=== PATIENT | female | born 1980 | race Caucasian/White ===

== ENCOUNTER 2020-01-16 09:41 | Emergency (ER) | payer SELFPAY ==
[~2020-01-16] VITALS: Ht 165 cm; Wt 110.0 kg
--- NOTE | 2020-01-16 09:56 | ED Lower Extremity ---
General Stated Complaint: RT ANKLE INJ Source: patient Exam Limitations: no limitations History of Present Illness Date Seen by Provider: Jan 16, 2020 Time Seen by Provider: 09:42 Initial Comments The patient is a pleasant 39-year-old female who presents for evaluation of an injury to the right ankle. She states that yesterday evening she was going on her stairs and tripped and twisted the ankle and felt a pop. She used some crutches or at home and were originally given to her father. She denies any other injuries from the fall and specifically denies hitting her head, having neck pain, or losing consciousness. She denies previous significant injury to the ankle. She is unable to bear full weight due to the pain. There is some swelling and a small amount of ecchymosis near the right lateral malleolus. She is alert and oriented 4, calm, and appears to be in no distress at this time. Onset: yesterday Severity: moderate Pain/Injury Location: right ankle Method of Injury: fell Modifying Factors: Improves With Movement (makes the pain worse), Improves With Rest (makes the pain better) Allergies and Home Medications Allergies Coded Allergies: No Known Drug Allergies (Unverified , 01/16/20) Home Medications Hydrocodone/Acetaminophen 1 Each Tablet, 1 EACH PO Q4H Prescribed by: JAZZMINE PEREZ on 01/16/20 1024 Patient Home Medication List Home Medication List Reviewed: Yes Review of Systems Constitutional: no symptoms reported EENTM: no symptoms reported Respiratory: no symptoms reported Cardiovascular: no symptoms reported Gastrointestinal: no symptoms reported Genitourinary: no symptoms reported Musculoskeletal: other (right lateral ankle pain and swelling) Skin: no symptoms reported Psychiatric/Neurological: No Symptoms Reported All Other Systems Reviewed Negative Unless Noted: Yes Past Hfoyzlk-Gfdibm-Hyidyr Hx Past Med/Social Hx: Reviewed Nursing Past Med/Soc Hx Patient Social History Recent Foreign Travel: No Contact w/Someone Who Travel: No Physical Exam Vital Signs Vital Signs - First Documented 01/16/20 09:58 Temp 37.0 Pulse 89 Resp 18 B/P (MAP) 124/76 (92) Pulse Ox 99 O2 Delivery Room Air Capillary Refill : Height, Weight, BMI Height: '" Weight: lbs. oz. kg; BMI Method: General Appearance: WD/WN, no apparent distress HEENT: PERRL/EOMI, normal ENT inspection Neck: non-tender, full range of motion Cardiovascular: regular rate, rhythm, no edema, no JVD Respiratory: lungs clear, normal breath sounds, no respiratory distress Hips: bilateral hip non-tender, bilateral hip normal inspection, bilateral hip normal range of motion, bilateral hip no evidence of injury Legs: bilateral leg non-tender, bilateral leg normal inspection, bilateral leg normal range of motion, bilateral leg no evidence of injury Knees: bilateral knee non-tender, bilateral knee normal inspection, bilateral knee normal range of motion, bilateral knee no evidence of injury Ankles: left ankle non-tender, left ankle normal inspection, left ankle normal range of motion, left ankle no evidence of injury; right ankle bone tenderness Feet: bilateral foot non-tender, bilateral foot normal inspection, bilateral foot normal range of motion, bilateral foot no evidence of injury Neurologic/Psychiatric: no motor/sensory deficits, alert, normal mood/affect, oriented x 3 Skin: normal color, warm/dry Progress/Results/Core Measures Results/Orders My Orders Orders - AJZZMINE PEREZ DO Ankle 3 View Right (01/16/20 09:45) Ice: Apply To Affected Area (01/16/20 09:46) Ortho Glass (01/16/20 10:15) Hydrocodone/Apap 5/325 Tablet (Lortab 5 (01/16/20 10:15) Crutches (01/16/20 10:24) Vital Signs/I&O 01/16/20 09:58 Temp 37.0 Pulse 89 Resp 18 B/P (MAP) 124/76 (92) Pulse Ox 99 O2 Delivery Room Air Progress Progress Note : Progress Note @1025 - Patient updated on x-ray findings suggesting nondisplaced right distal fibula fracture. Orthoglass splint applied by LAKIA Nice. Minimal swelling, no sign of compartment syndrome @1030 - Pt has been given orthopedic follow-up. Advise the patient to return for new or worsening symptoms. Advised patient to take Tylenol or ibuprofen at home for pain relief and to take the prescribed medication as needed for breakthrough pain. She has been given new crutches. Diagnostic Imaging Diagonstic Imaging: Xray Comments NAME: HUMBLE PHILLIPS [facility] REC#: [id number] PT STATUS: REG ER : 1980 PHYSICIAN: JAZZMINE PEREZ DO ADMIT DATE: 01/16/20/ER FS Draft Date of Exam:01/16/20 ANKLE 3 VIEW RIGHT EXAMINATION: Right ankle at 954h. INDICATION: Ankle pain 3 views were obtained. There are no prior studies available for comparison On the oblique view there is a faint linear lucency extending longitudinally through the distal fibula. This is difficult to identify on the other 2 projections but I am suspicious that there is a nondisplaced fracture of the distal fibula. No other fracture or acute bony abnormality is appreciated. The ankle mortise is not widened and the talar dome is smooth. There is soft tissue edema over the lateral aspect of the ankle joint. IMPRESSION: 1. The findings are suspicious for a nondisplaced fracture of the distal fibula. There is no acute bony abnormality noted otherwise. 2. If further imaging is desired, either CT or MRI would be recommended. Dictated on workstation # [id number] Dict: 01/16/20 1003 Trans: 01/16/20 1008 ELLEN [id number] Interpreted by: SAMMIE ELLISON MD Electronically signed by: Departure Impression Primary Impression: Fracture of distal end of right fibula Disposition: HOME, SELF-CARE Condition: Stable Departure-Patient Inst. Decision time for Depature: 10:02 Referrals: LUKE CHAPPELL MD Patient Instructions: Ankle Fracture (DC) Add. Discharge Instructions: Take the prescribed medicine as directed, as needed. Follow-up with orthopedics in the next 2-3 days. Return to the emergency Department immediately for new or worsening symptoms. Scripts Hydrocodone/Acetaminophen (Hydrocodone-Acetamin 5-325 mg) 1 Each Tablet 1 EACH PO Q4H for Pain for 5 Days, #15 TAB Prov: JAZZMINE PEREZ DO 01/16/20 JAZZMINE PEREZ DO Jan 16, 2020 09:56
--- OUTSIDE RECORDS SUMMARY | 2020-01-16 09:56 | XMS REPORT | Continuity of Care Document ---
Author Organization Unknown Address Unknown Phone Unavailable Allergies There is no data. Medications There is no data. Problems There is no data. Procedures There is no data. Results There is no data. Encounters ACCT No. Visit Date/Time Discharge Status Pt. Type Provider Facility Loc./Unit Complaint [id number] 06/07/2019 16:00:00 06/07/2019 23:59: 59 CLS Outpatient MIRANDA CARLTON L[facility]
--- NOTE | 2020-01-16 10:09 | Diagnostic Imaging Report ---
EXAMINATION: Right ankle at 954h. INDICATION: Ankle pain 3 views were obtained. There are no prior studies available for comparison On the oblique view there is a faint linear lucency extending longitudinally through the distal fibula. This is difficult to identify on the other 2 projections but I am suspicious that there is a nondisplaced fracture of the distal fibula. No other fracture or acute bony abnormality is appreciated. The ankle mortise is not widened and the talar dome is smooth. There is soft tissue edema over the lateral aspect of the ankle joint. IMPRESSION: 1. The findings are suspicious for a nondisplaced fracture of the distal fibula. There is no acute bony abnormality noted otherwise. 2. If further imaging is desired, then either CT or MRI would be recommended. Dictated by: Dictated on workstation # [id number]
[2020-01-16] MEDS ORDERED: HYDROcodone/APAP 5 MG/325 MG (LORTAB) TAB PO ONE (10:15)
[2020-01-16] MEDS ORDERED: IBUPROFEN 600 MG (MOTRIN) TAB PO ONE (10:15)
[2020-01-16] MEDS ORDERED: HYDR-83 PO (10:24)
[2020-01-16 11:00] VITALS: BP 122/77
== END 2020-01-16 10:45 | disposition home or self-care (01) ==
LOC: ER FS 09:43
DX: S82.831A Other fracture of upper and lower end of right fibula, initial encounter for closed fracture (principal); X50.1XXA Overexertion from prolonged static or awkward postures, initial encounter
CPT/HCPCS: 29515; 73610

== ENCOUNTER → 2020-02-03 | Outpatient (CLI) | payer SELFPAY ==
[~2020-02-03] MED LIST: HYDR-83 PO
--- NOTE | 2020-02-03 10:38 | Diagnostic Imaging Report ---
EXAMINATION: Right ankle, 3 views. INDICATION: Followup fracture. COMPARISON: 01/16/2020. FINDINGS: No fracture or acute osseous abnormality is identified. The previously described lucency in the distal fibula is not well seen on today's exam. There is no periosteal reaction or increased sclerosis noted in this region. Bony alignment is maintained. The ankle mortise appears intact including the medial and lateral clear space. No osteochondral lesion of the talar dome. There is mild degenerative change of the midfoot. Unchanged plantar calcaneal spur and posterior calcaneal enthesopathy is demonstrated. Regional soft tissues are unremarkable. IMPRESSION: Previously described lucency in the distal fibula is not well seen on today's exam. No findings to suggest acute or healing fracture. Dictated by: Dictated on workstation # [id number]
== END ==
LOC: RAD FS 10:08
PROVIDERS: ATTEND Nurse Practitioner
DX: S82.891D Other fracture of right lower leg, subsequent encounter for closed fracture with routine healing (principal); X58.XXXD Exposure to other specified factors, subsequent encounter
CPT/HCPCS: 73610

== ENCOUNTER 2021-09-19 16:30 | Emergency (ER) | payer SELFPAY ==
[~2021-09-19 16:30] MED LIST changes: +ACHD5005 PO; -HYDR-83 PO
--- NOTE | 2021-09-19 16:40 | ED Upper Extremity ---
General Chief Complaint: Upper Extremity Stated Complaint: RT SHOULDER PAIN History of Present Illness Date Seen by Provider: Sep 19, 2021 Time Seen by Provider: 16:34 Initial Comments 41-year-old female presents with right shoulder pain. She reports is been going on for about 2 weeks. Patient has been seen by her chiropractor for it twice. The last time was yesterday. She reports that yesterday she received acupuncture and initially felt better but then got quite a bit worse last night. She states that she can have some pain with it today. She has no known injury. 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 Patient complains of pain with basically any range of motion. The pain is right along the AC joint Allergies and Home Medications Allergies Coded Allergies: No Known Drug Allergies (Unverified , 01/16/20) Patient Home Medication List Home Medication List Reviewed: Yes Hydrocodone/Acetaminophen (Hydrocodone-Acetamin 5-325 mg) 1 Each Tablet, 1 EACH PO Q4H Prescribed by: JAZZMINE PEREZ on 01/16/20 1024 Review of Systems Constitutional: No chills, No fever EENTM: see HPI Respiratory: no symptoms reported Cardiovascular: no symptoms reported Gastrointestinal: no symptoms reported Genitourinary: no symptoms reported Musculoskeletal: see HPI Skin: no symptoms reported Psychiatric/Neurological: No Symptoms Reported Physical Exam Vital Signs Vital Signs - First Documented 09/19/21 16:37 Temp 36.3 Pulse 62 Resp 16 B/P (MAP) 150/97 (114) Pulse Ox 99 O2 Delivery Room Air Capillary Refill : Height, Weight, BMI Height: '" Weight: lbs. oz. kg; 40.00 BMI Method: General Appearance: no apparent distress, obese Neck: full range of motion Cardiovascular: normal peripheral pulses, regular rate, rhythm Respiratory: normal breath sounds Shoulder: No bone tenderness, No deformity; limited ROM (Limited due to pain, mild weakness but likely due to pain caused with resistance), soft tissue tenderness; No swelling Elbow/Forearm: normal inspection Wrist: Yes normal inspection Hand: normal inspection Neurologic/Tendon: normal sensation, normal motor functions, normal tendon functions Neurologic/Psychiatric: no motor/sensory deficits, alert, normal mood/affect, oriented x 3 Skin: normal color, warm/dry Progress/Results/Core Measures Results/Orders My Orders Orders - KRISTIE SHELTON DO Shoulder 3 View Right (09/19/21 16:42) Ketorolac Injection (Toradol Injection) (09/19/21 16:42) Orphenadrine Inj (Ed Only) (Norflex Inje (09/19/21 16:42) Vital Signs/I&O 09/19/21 16:37 Temp 36.3 Pulse 62 Resp 16 B/P (MAP) 150/97 (114) Pulse Ox 99 O2 Delivery Room Air Diagnostic Imaging Diagonstic Imaging: Xray Plain Films/CT/US/NM/MRI: other Comments Date of Exam:09/19/21 SHOULDER 3 VIEW RIGHT EXAMINATION: Right shoulder 2 or more views. HISTORY: Shoulder pain. COMPARISON: None available. FINDINGS: There are two opacities projecting over the right shoulder joint which may represent loose bodies. Joint spaces are normal. No fracture. Alignment is normal. IMPRESSION: Normal shoulder with the exception of two loose bodies projecting over the shoulder joint. Reviewed: Reviewed by Me, Reviewed/Discussed Departure Impression Primary Impression: Right shoulder pain Qualified Codes: M25.511 - Pain in right shoulder Additional Impression: Loose body in right shoulder Disposition: HOME, SELF-CARE Condition: Stable Departure-Patient Inst. Referrals: ALIZA HERBERT (PCP) Primary Care Physician KLEBER BOLDEN MD (Family) Primary Care Physician Patient Instructions: Shoulder Pain ED Add. Discharge Instructions: Follow up with forestry extension specialist for further evaluation 4% topical lidocaine with menthol to affected area as needed for pain voltaran cream to right shoulder as directed on package All discharge instructions reviewed with patient and/or family. Voiced understanding. KRISTIE SHELTON DO Sep 19, 2021 16:40
[2021-09-19] MEDS ORDERED: KETOROLAC 30 MG/ML VIAL IM STA (16:42)
[2021-09-19] MEDS ORDERED: ORPHENADRINE 60 MG/2 ML (NORFLEX) AMP (ED ONLY) IM STA (16:42)
--- NOTE | 2021-09-19 16:55 | Diagnostic Imaging Report ---
EXAMINATION: Right shoulder 2 or more views. HISTORY: Shoulder pain. COMPARISON: None available. FINDINGS: There are two opacities projecting over the right shoulder joint which may represent loose bodies. Joint spaces are normal. No fracture. Alignment is normal. IMPRESSION: Normal shoulder with the exception of two loose bodies projecting over the shoulder joint. Dictated by: Dictated on workstation # [id number]
[2021-09-19 17:20] VITALS: BP 150/97
== END 2021-09-19 17:13 | disposition home or self-care (01) ==
LOC: EDUNIT# 16:30 → ER FS 16:32
DX: M25.511 Pain in right shoulder (principal); M24.011 Loose body in right shoulder
CPT/HCPCS: 73030; 96372